=== PATIENT | female | born 1965 | race Caucasian/White ===

== ENCOUNTER 2017-06-16 06:07 | Emergency (ER) | payer SELFPAY ==
[~2017-06-16] VITALS: Ht 175.3 cm; Wt 66.0 kg
[~2017-06-16 06:07] MED LIST: CIPR-9 PO; EXCETAB PO; METR-1 PO
[2017-06-16 06:10] VITALS: BP 164/78; PULSE 82; RESP 20; TEMP 98.5; O2SAT 97
[2017-06-16 06:31] VITALS: BP 130/70; PULSE 73; RESP 18; O2SAT 97
--- NOTE | 2017-06-16 07:08 | RADRPT ---
EXAM DATE/TIME: 06/16/2017 06:37 [place] COMPARISON: No previous studies available for comparison. INDICATIONS : Left sided rib pain- no known injury- difficulty taking deep breaths. MEDICAL HISTORY : None. SURGICAL HISTORY : None. ENCOUNTER: Initial ACUITY: 1 day PAIN SCORE: 7/10 LOCATION: Bilateral chest FINDINGS: A single view of the chest demonstrates the lungs to be symmetrically aerated without evidence of mas s, infiltrate or effusion. The cardiomediastinal contours are unremarkable. Osseous structures are intact. CONCLUSION: No acute disease. Taco Campbell MD on June 16, 2017 at 7:07 Board Certified Radiologist. This report was verified electronically.
[2017-06-16] MEDS ORDERED: IBUP800T23 PO (07:15)
[2017-06-16] MEDS ORDERED: CYCL1TAB29 PO (07:15)
--- NOTE | 2017-06-16 07:16 | PD ---
HPI . Left anterior chest pain Chief Complaint: Musculoskeletal Complaint Time Seen by Provider: 07:01 Travel History International Travel<30 days: No Contact w/Intl Traveler<30days: No Traveled to known affect area: No History of Present Illness HPI The patient presents with the chief complaint of left anterior chest pain. She states that she had picked her dog 2 days ago to put him in the bathtub. Since she strained something in her left anterior chest. She states that she thinks that she broke a rib. She states that the pain was just a soreness till this morning when the pain became acutely worse. Pain is exacerbated by deep respirations. She states that she was having some difficulty breathing earlier but that the difficulty breathing has subsided. Pain is rated 10/10. She has not taken anything for the pain. [facility] Past Medical History Medical History: Denies Significant Hx Diminished Hearing: No Respiratory: Yes (ASTHMA A CHILD) Migraines: Yes ?: Not Past Surgical History Hysterectomy: Yes (PARTIAL) Tonsillectomy: Yes Other Surgery: Yes (breast augmentation) Social History Alcohol Use: No Tobacco Use: Yes (1ppd) Substance Use: No Allergies-Medications (Allergen,Severity, Reaction): Coded Allergies: No Known Allergies (Unverified , 06/16/17) Reported Meds & Prescriptions Reported Meds & Active Scripts Active Flagyl (Metronidazole) 500 Mg Tab 500 Mg PO TID 14 Days Cipro (Ciprofloxacin HCl) 500 Mg Tab 500 Mg PO BID 14 Days Reported Excedrin Migraine (Bzykngc-Oumdsjwxxqzca-Djyqdbzc) 250-250-65 Mg Tab 2 Tab PO DAILY Review of Systems Except as stated in HPI: all other systems reviewed are Neg Cardiovascular: Positive: Chest Pain or Discomfort Respiratory: Positive: Shortness of Breath Physical Exam Narrative GENERAL: The patient is sitting on the stool in the room in no acute distress. SKIN: Warm and dry. No bruises or abrasions noted. HEAD: Atraumatic. Normocephalic. EYES: Pupils equal and round. Extraocular movements are intact. ENT: No nasal bleeding or discharge. Mucous membranes pink and moist. NECK: Trachea midline. Neck is supple. CARDIOVASCULAR: Regular rate and rhythm. Heart sounds are normal. RESPIRATORY: No accessory muscle use. Lungs have full air movement throughout. Her left lower anterior chest wall is tender over the left breast. There is no crepitus. GASTROINTESTINAL: Abdomen soft, non-tender, nondistended. MUSCULOSKELETAL: No obvious deformities. No edema. NEUROLOGICAL: Awake and alert. No obvious cranial nerve deficits. Motor grossly within normal limits. Normal speech. PSYCHIATRIC: Appropriate mood and affect; insight and judgment normal. Data Data Last Documented VS Vital Signs Date Time Temp Pulse Resp B/P Pulse Ox O2 Delivery O2 Flow Rate FiO2 06/16/17 06:31 73 18 130/70 97 06/16/17 06:10 98.5 Room Air Orders Chest, Single Ap (06/16/17 ) [facility] Medical Decision Making Medical Screen Exam Complete: Yes Emergency Medical Condition: Yes Differential Diagnosis My differential diagnosis of muscle pain includes but is not limited to overuse , muscle spasm, strain Narrative Course Patient presents complaining with left anterior chest wall pain which started after lifting her heavy dog. Her exam is unremarkable. Chest x-ray is negative. The chest x-ray was independently viewed by me. This patient has a strain to the left anterior chest wall. She will be treated symptomatically. Diagnosis Primary Impression: Muscle strain of chest wall Qualified Code: S29.011A - Muscle strain of chest wall, initial encounter Patient Instructions: General Instructions, Muscle Strain (DC) Med/Other Pt SpecificInfo: Prescription(s) given, Med Stopped Scripts Cyclobenzaprine (Flexeril)10 Mg Tab10 Mg PO TID #30 TAB Ref 0 Prov:Thu Matthews MD 06/16/17 Ibuprofen 800 Mg Yiv032 Mg PO Q8H PRN (Pain/Inflammation) #60 TAB Ref 0 Prov:Thu Matthews MD 06/16/17 Disposition: 01 DISCHARGE HOME Condition: Stable Thu Matthews MD Jun 16, 2017 07:16
== END 2017-06-16 07:33 | disposition home or self-care (01) ==
LOC: NEPE 06:07
DX: S29.011A Strain of muscle and tendon of front wall of thorax, initial encounter (principal); X50.9XXA Other and unspecified overexertion or strenuous movements or postures, initial encounter; F17.210 Nicotine dependence, cigarettes, uncomplicated
CPT/HCPCS: 71010; 99283